=== PATIENT | male | born 1985 | race Caucasian/White ===

== ENCOUNTER 2016-09-06 14:55 | Emergency (ER) | payer OTHER ==
[~2016-09-06] VITALS: Ht 177.8 cm; Wt 111.4 kg
[2016-09-06 15:14] VITALS: BP 142/94
--- NOTE | 2016-09-06 16:59 | ED EYE COMPLAINT ---
History of Present Illness General Chief Complaint: Eye Problems Stated Complaint: L EYE PAIN Source: patient, family Exam Limitations: no limitations Vital Signs & Intake/Output Vital Signs & Intake/Output Vital Signs Date Time Temp Pulse Resp B/P Pulse O2 O2 Flow FiO2 Ox Delivery Rate 09/06 1514 97.4 88 20 142/94 98 Room Air Room Air Allergies Coded Allergies: No Known Allergies (09/06/16) Triage Note: PT TO ED WITH C/O LEFT EYE REDNESS, AND TEARING SINCE THIS AM. ? FOREIGN BODY, WASHED OUT WITH WATER. Triage Nurses Notes Reviewed? yes HPI: MR. BARRAGAN IS A 31 YO M W/ PMH OF HYPERLIPIDEMIA AND HERPES 1/2 PRESENTING TO ED FOR L EYE PAIN AND GROIN LESIONS. PT STATES HE WENT TO BED LAST NIGHT WITH THE WINDOW OPEN AND WOKE UP AM W/ RED EYE AND EYE TEARING. PT ENDORSES L FOREIGN BODY SENSATION. PT DENIES CHANGES IN VISION, BUT STATES BC HIS EYE IS TEARING, HIS VISION IS SLIGHTLY BLURRY. PT DENIES HEADACHE, FEVER, CHILLS, NECK PAIN/ STIFFNESS. NO CP, SOB, ABD PAIN, N/V/D OR DYSURIA. PT ADDS THAT HE HAS THESE GENITAL LESIONS THAT HAVE BEEN INCREASING IN NUMBER. HE THOUGHT THEY WERE SKIN TAGS, BUT THEY SEEM TO BE INCREASING IN NUMBERS. LESIONS ARE IN THE PELVIC CREASE, WELL ON HIS TESTICLES, HIS PERINEUM. PT DENIES DYSURIA OR PENILE DISCHARGE. HE WAS TESTED A YEAR AGO AND WAS DIAGNOSED W/ HERPES 1/2 BUT HAS NEVER HAD AN OUTBREAK. HE DOES STATE THAT THESE LESIONS ARE NONTENDER. OCCASSIONALLY, THEY ITCH. HE'S HAD MOST OF THEM FOR OVER A YEAR, BUT HE'S NOTICED MORE POPPING UP IN THE PAST FEW MONTHS. GIRLFRIEND STATES SHE PLACES BABY OIL ON THEM SO HE DOES NOT ITCH THEM. HE ALSO STATES THAT HE SHAVES THE AREA. (PAUL HILL,PERRY) Reconcile Medications Erythromycin Base (Ilotycin) 5 MG/GRAM (0.5 %) OINT...G. 1 JANETT OP TID EYE PROBLEMS (MARITZA HILL,JAYSON Perez) Past History Travel History Traveled to [place] past 21 day No Medical History Any Pertinent Medical History? see below for history Neurological: NONE EENT: NONE Cardiovascular: hyperlipidemia Respiratory: NONE Gastrointestinal: NONE Hepatic: NONE Renal: NONE Musculoskeletal: NONE Psychiatric: NONE Endocrine: NONE Blood Disorders: NONE Cancer(s): NONE HOSPITAL MORTICIAN/Reproductive: NONE Other Medical Hx: HERPES 1/2 Surgical History Surgical History: none Psychosocial History What is your primary language Cypriot Tobacco Use: Never used ETOH Use: occasional use Illicit Drug Use: benzodiazepines Family History Hx Contributory? No Sexual History Sexually Active Yes # of partners 1 Sexual Orientation Heterosexual Use of Protection No (PERRY MILLER MD) Review of Systems Review of Systems Constitutional: Reports: no symptoms. Eyes: Reports: blurred vision, drainage, foreign body sensation, pain, photophobia. Denies: decreased acuity, previous injury, vision change, contact lenses. Ear: Reports: no symptoms. Nose: Reports: no symptoms. Mouth: Reports: no symptoms. Throat: Reports: no symptoms. Respiratory: Reports: no symptoms. Cardiovascular: Reports: no symptoms. GI: Reports: no symptoms. Genitourinary: Reports: see HPI. Musculoskeletal: Reports: no symptoms. Skin: Reports: see HPI, lesions. Neurological/Psychological: Reports: no symptoms. Hematologic/Endocrine: Reports: no symptoms. Immunologic/Allergic: Reports: no symptoms. All Other Systems: Reviewed and Negative (PERRY MILLER MD) Physical Exam General Appearance: well developed/nourished, no apparent distress, alert, awake , comfortable General Inspection: INJECTED EYE W/ UPPER LID SWELLING Eyelid: normal inspection, everted for exam Conjunctiva/Sclera: injected Cornea: normal inspection, examined w/fluorescein, corneal ulcer EOM: intact Pupil: normal accommodation, normal pupil, PERRL Anterior Chamber: normal inspection Eye Left 1) CORNEAL ULCER General Inspection: normal inspection Eyelid: everted for exam Conjunctiva/Sclera: normal inspection Cornea: normal inspection EOM: intact Pupil: normal accommodation, normal pupil, PERRL Anterior Chamber: normal inspection Posterior Segments: normal funduscopic Physical Exam Head: atraumatic, normal appearance Ears: Bilateral: canal normal, Tympanic normal. Nose: normal inspection Mouth/Throat: normal mouth inspection, pharynx normal Neck: normal inspection, supple, full range of motion, trachea midline Cardiovascular/Respiratory: normal breath sounds, normal peripheral pulses, regular rate/rhythm, no respiratory distress Gastrointestinal: SOFT, NONTENDER Neurologic/Psych: no motor/sensory deficits, awake, alert, oriented x 3, normal gait, normal mood/affect Skin: intact, normal color, warm/dry (PERRY MILLER MD) Progress Differential Diagnosis: corneal abrasion, corneal foreign body, conjunctivitis, CORNEAL ULCER, GENITAL WARTS, CONDYLOMA, SKIN TAG, MOLLUSCUM CONTAGIOSUM Plan of Care: PATIENT IS A WELL-APPEARING MALE. DOES NOT WEAR CONTACTS. FLORESCEIN EXAM SHOWS CORNEAL ABRASION VS CORNEAL ULCER, LIKELY SHALLOW ULCERATION IT IS ROUND IN NATURE, AND NOT AN ABRASION. PATIENT'S VISION IS DECREASED SOME, LIKELY FROM TEARING. BUT NO GROSS CHANGE IN VISUAL ACUITY. WILL GIVE PT ERYTHROMYCIN OPHTHALMOLOGIC OINTMENT. LESIONS NEAR GROIN APPEAR TO BE GENITAL WARTS VS CONDYLOMA. PT DENIES EVER HAVING SEX W/ MEN. GF DENIES ANY HX OF HPV. PT DOES HAVE HX OF HERPES 1/2, BUT LESIONS ARE NOT VESICULAR IN NATURE. LIKELY GENITAL WARTS. RECOMMENDED PATIENT NOT ITCH, THEY CAN BE SPREAD AND NOT SHAVE THE AREA FOR THE SAME REASON. WILL DC HOME W/ DERMATOLOGY REFERRAL. RECOMMENDED HE NOT HAVE SEX UNTIL HE SEES A COLD REDUCTION ROLLER. (PERRY MILLER MD) Departure Departure Time of Disposition: 1704 Disposition: HOME OR SELF CARE Condition: Stable Clinical Impression Primary Impression: Corneal ulcer of left eye Secondary Impressions: Genital lesion, male Referrals: UNKNOWN (PCP/Family) Additional Instructions: PLEASE USE THE FULL COURSE OF ANTIBIOTICS FOR YOUR L EYE. IF YOU HAVE CHANGES IN VISION, WORSENING PAIN, OR ANY OTHER CONCERNING SYMPTOMS, RETURN TO THE EMERGENCY DEPARTMENT FOR EVALUATION. OTHERWISE, YOU CAN FOLLOW UP WITH YOUR PRIMARY CARE DOCTOR IN 1-2 DAYS. I WOULD RECOMMEND YOU SEE A COLD REDUCTION ROLLER ABOUT YOUR GENITAL LESIONS. IT COULD BE GENITAL WARTS OR CONDYLOMA. I WOULD RECOMMEND YOU NOT ITCH, SHAVE THE AREA. IT COULD BE TRANSMITTED TO YOUR PARTNER, TO PLEASE BE CAREFUL. Departure Forms: Customer Survey General Discharge Information Prescriptions: Current Visit Scripts Erythromycin Base (Ilotycin) 1 JANETT OP TID #1 TUBE (PERRY MILLER MD) Resident Co-Sign Statement Statement: ED Attending supervision documentation- [x] I saw and evaluated the patient. I have also reviewed all the pertinent lab results and diagnostic results. I agree with the findings and the plan of care as documented in the Resident's documentation. [] I have reviewed the ED Record and agree with the Resident's documentation. [] Additions or exceptions (if any) to the Resident's note and plan are summarized below: [] (MARITZA HILL,JAYSON Perez)
[2016-09-06] MEDS ORDERED: ILOTYCIN1 GM OP (17:03)
== END 2016-09-06 17:20 ==
LOC: ERH 14:55
DX: H16.002 Unspecified corneal ulcer, left eye (principal); N50.9 Disorder of male genital organs, unspecified